=== PATIENT | female | born 1990 | race Caucasian/White ===

== ENCOUNTER 2017-08-01 17:09 | Emergency (ER) | payer MEDICAID, OTHER ==
[~2017-08-01] VITALS: Ht 165.1 cm; Wt 76.0 kg
[2017-08-01 17:14] VITALS: BP 109/59
== END 2017-08-02 01:09 | disposition left against medical advice (07) ==
LOC: ER 18:33
DX: R50.9 Fever, unspecified (principal); R11.10 Vomiting, unspecified; Z53.21 Procedure and treatment not carried out due to patient leaving prior to being seen by health care provider